=== PATIENT | male | born 1970 | race Two or more races ===

== ENCOUNTER → 2022-06-29 | Outpatient (CLI) | payer BC ==
[~2022-06-29] MED LIST: IOHEXOL-350 75 ML VIAL IV ONE
== END | disposition home or self-care (01) ==
LOC: RAH 08:24
PROVIDERS: ATTEND Otolaryngology
DX: T17.0XXA Foreign body in nasal sinus, initial encounter (principal); J34.2 Deviated nasal septum; J33.8 Other polyp of sinus; J33.9 Nasal polyp, unspecified; J34.89 Other specified disorders of nose and nasal sinuses; M47.22 Other spondylosis with radiculopathy, cervical region; M48.02 Spinal stenosis, cervical region; J44.9 Chronic obstructive pulmonary disease, unspecified; J84.10 Pulmonary fibrosis, unspecified; X58.XXXA Exposure to other specified factors, initial encounter; Y93.89 Activity, other specified; Y92.89 Other specified places as the place of occurrence of the external cause; Y99.8 Other external cause status
CPT/HCPCS: 70486; 70492; Q9967